=== PATIENT | female | born 1970 | race Caucasian/White ===

== ENCOUNTER 2022-06-24 05:44 | Day surgery (SDC) | payer BC ==
[2022-06-17 15:00] LABS: BASOPHILS # (AUTO) 0.1 X10'3 (0-0.2); BASOPHILS % (AUTO) 0.7 % (0-1); EOSINOPHILS # (AUTO) 0.2 X10'3 (0-0.9); EOSINOPHILS % (AUTO) 1.7 % (0-6); LYMPHOCYTES # (AUTO) 1.5 X10'3 (1.1-4.8); LYMPHOCYTES % (AUTO) 14.3 % (21-51); MEAN CORPUSCULAR HEMOGLOBIN 28.5 PG (27.0-31.0); MEAN CORPUSCULAR HGB CONC 33.3 g/dL (33.0-36.5); MEAN CORPUSCULAR VOLUME 85.4 FL (78-98); MEAN PLATELET VOLUME 9.5 FL (7.4-10.4); MONOCYTES # (AUTO) 0.6 X10'3 (0-0.9); MONOCYTES % (AUTO) 5.5 % (2-12); NEUTROPHILS # (AUTO) 8.3 X10'3 (1.8-7.7); NEUTROPHILS % (AUTO) 77.8 % (42-75); PRE OP HEMATOCRIT 38.1 % (35.0-45.0); PRE OP HEMOGLOBIN 12.7 g/dL (12.0-16.0); PRE OP PLATELET COUNT 228 X10'3 (140-440); RED BLOOD COUNT 4.46 X10'6 (4.20-5.60); RED CELL DISTRIBUTION WIDTH 13.5 % (11.5-14.5)
[2022-06-17 15:13] LABS: ALBUMIN 3.1 G/DL (3.4-5.0); ALBUMIN/GLOBULIN RATIO 0.8 (1.1-1.5); ALKALINE PHOSPHATASE 62 IU/L (46-116); BLOOD UREA NITROGEN 45 MG/DL (7-18); BUN/CREATININE RATIO 22.1 (6.6-38.0); CALCIUM 8.9 MG/DL (8.5-10.1); CHLORIDE 103 MMOL/L (99-107); CREATININE 2.04 MG/DL (0.40-0.90); PRE OP ALT 20 U/L (30-65); PRE OP ANION GAP 11 (8-16); PRE OP AST 17 U/L (10-37); PRE OP BILIRUB, TOTAL 0.2 MG/DL (0.0-1.0); PRE OP SODIUM 138 MMOL/L (135-145); TOTAL CARBON DIOXIDE 23.8 MMOL/L (24-32); TOTAL PROTEIN 6.9 G/DL (6.4-8.2); eGFR 25 ML/MIN
[2022-06-17 15:17] LABS: PRE OP GLUCOSE 279 MG/DL (70-104)
[2022-06-24] VITALS (7 sets, daily range): BP systolic 143–165; BP diastolic 83–95
[~2022-06-24] VITALS: Ht 166.4 cm; Wt 106.4 kg
[~2022-06-24 05:44] MED LIST: AMLO10TA13 PO; BUSP10TA3 PO; DOCUMENT DATE & TIME OF BETA-BLOCKER PO ONE; GABA-530 PO; HYDR25TA4 PO; INSU100V9 SQ; LEVO25TA7 PO; METO50TA16 PO; OMEP20CA16 PO; TRAM50TA2 PO; cefazolin 2gm/D5W 100mL 100 ML IV ONE; famotidine 20mg tablet PO ONE; ringers solution, lacted 1,000 ML IV SCH
[2022-06-24] MEDS ORDERED: BUPIVAcaine/PF 2.5 mg/ml (0.25%) 30ml vial ONE (06:53)
[2022-06-24] MEDS ORDERED: ringers solution, lacted 1,000 ML IV SCH (07:25)
[2022-06-24] MEDS ORDERED: HYDROmorphone/PF 0.2 MG/ML SYRINGE IV PRN ×2 (07:25)
[2022-06-24] MEDS ORDERED: morphine 2 MG/ML inj. syringe IV PRN (07:25)
[2022-06-24] MEDS ORDERED: hydrALAZINE 20mg/ml inj. IV PRN (07:25)
[2022-06-24] MEDS ORDERED: labetalol 20mg/4ml (5mg/ml) syringe IV PRN (07:25)
[2022-06-24] MEDS ORDERED: proCHLORperazine 10 MG/2 ml inj IV PRN (07:25)
[2022-06-24] MEDS ORDERED: morphine 4 MG/ML inj SYRINge IV PRN (07:25)
[2022-06-24] MEDS ORDERED: ketorolac trometh. 30mg/ml inj. IV ONE (07:25)
[2022-06-24] MEDS ORDERED: meperidine/PF 25mg/ml syringe IV PRN (07:25)
[2022-06-24] MEDS ORDERED: acetaminophen 1,000mg/100ml IV 100 ML IV PRN (07:25)
[2022-06-24] MEDS ORDERED: ondansetron/PF 4mg/2ml inj IV PRN (07:25)
[2022-06-24] MEDS ORDERED: LIDOcaine 0.5% (5mg/ml) 50ml vial ONE (08:07)
[2022-06-24] MEDS ORDERED: fentaNYL/PF 50MCG/1 ML 2ML syringe ONE (08:40)
[2022-06-24] MEDS ORDERED: midazolam 1 mg/ML 2ml injection ONE (08:49)
[2022-06-24] MEDS ORDERED: BUPIVAcaine 0.5% inj/PF 30 ml vial IJ ONE (09:14)
[2022-06-24] MEDS ORDERED: propofol inj 20 ML IV ONE ×2 (09:25)
--- NOTE | 2022-06-24 09:31 | NUR ---
Received from OR via [facility] TO RECOVERY ROOM 7, accompanied by Anesthesiologist DR ABDUL and report given by Anesthesiolgist. PT PRESEEEENTS WITH PIV 20G LEFT HAND, RIGHT HAND DRESSING CDI, LR RUNNING @ 100MLS/HR, SPO2 100% 10L MASK, VSS. Addendum: 06/24/22 at 0936 by Argentina Hartman RN, RN Amended: Links added.
[2022-06-24] MEDS ORDERED: BUPIVAcaine/PF 5 mg/ml 10ml ONE (09:55)
--- NOTE | 2022-06-24 10:16 | NUR ---
PATIENT A&OX4, DENIES PAIN, V/S WNL, SCD OFF, 20G TO L HAND D/C, RIGHT WRIST DRESSING CDI W/ SLING. ICE AND ELEVATED RUE. I HAVE REVIEWED D/C INSTRUCTIONS WITH PATIENT INSTRUCTIONS WITH PATIENT AND THEY HAVE VERBALIZED UNDERSTANDING. PATIENT D/C HOME WITH ALL BELONGINGS AND FAMILY TRANSPORTED PATIENT HOME. Addendum: 06/24/22 at 1019 by Argentina Hartman RN, RN Amended: Links added.
== END 2022-06-24 10:16 | disposition home or self-care (01) ==
LOC: PAS 05:44
PROVIDERS: ATTEND Orthopaedic Surgery Hand Surgery
DX: G56.01 Carpal tunnel syndrome, right upper limb (principal); M65.331 Trigger finger, right middle finger; M25.531 Pain in right wrist; M65.841 Other synovitis and tenosynovitis, right hand; I25.2 Old myocardial infarction; E11.9 Type 2 diabetes mellitus without complications; Z79.899 Other long term (current) drug therapy; Z79.82 Long term (current) use of aspirin; Z79.84 Long term (current) use of oral hypoglycemic drugs; Z88.8 Allergy status to other drugs, medicaments and biological substances; Z98.51 Tubal ligation status; Z98.890 Other specified postprocedural states; Z87.891 Personal history of nicotine dependence
CPT/HCPCS: 26055; 29846; 29848; 36415; 80053; 82948; 85025; J0690; J2250; J2704; J3010; J3490; J7030; J7120; S0020; Z7506; Z7512; A4215; A4618; A7000